=== PATIENT | female | born 1995 | race Caucasian/White ===

== ENCOUNTER → 2025-07-14 | Outpatient (REF) | payer OTHER | LOC: M PLALAB 14:15 | PROVIDERS: ATTEND Advanced Practice Midwife | DX: Z34.81 Encounter for supervision of other normal pregnancy, first trimester (principal) ==

== ENCOUNTER → 2025-08-17 | Outpatient (CLI) | payer OTHER | LOC: M WHC 13:53 | PROVIDERS: ATTEND Advanced Practice Midwife | DX: Z34.82 Encounter for supervision of other normal pregnancy, second trimester (principal); Z3A.19 19 weeks gestation of pregnancy ==

== ENCOUNTER → 2025-09-15 | Outpatient (REF) | payer OTHER | LOC: M PLALAB 07:19 | PROVIDERS: ATTEND Advanced Practice Midwife | DX: Z53.9 Procedure and treatment not carried out, unspecified reason (principal) ==